=== PATIENT | male | born 1935 | race Caucasian/White ===

== ENCOUNTER 2017-05-09 06:22 | Day surgery (SDC) | payer MEDICARE, BC ==
[2017-05-09] MEDS ORDERED: PROPOFOL 10 MG/ML VIAL IV ONE (06:23)
[2017-05-09] MEDS ORDERED: LIDOCAINE 2% MDV (20MG/ML) 20ML VIAL IV ONE (06:23)
--- NOTE | 2017-05-12 08:01 | Operative Note ---
DATE OF SURGERY: 05/09/2017 SURGEON: Keith Alcazar MD OPERATION: COLONOSCOPY. INDICATIONS: This is an 81-year-old male with history of colon polyps who presented for surveillance colonoscopy. POSTOPERATIVE DIAGNOSES: 1. Left-sided colonic diverticulosis. 2. Four 6-9 mm sessile polyps in the ascending colon that were removed by snare cautery. 3. Two 3 mm sessile polyps in the transverse colon that were removed by cold biopsy forceps. 4. One 6 mm sessile polyp in the descending colon that was removed by cold snare. 5. Normal prostate exam. ANESTHESIA: Sedation is per Anesthesia. Pulse oximetry was monitored throughout the procedure to maintain O2 saturation of 90% or greater. Supplemental oxygen was administered via nasal cannula. Cardiac and vital signs were monitored throughout the duration of the procedure, and they were stable. The procedure of colonoscopy and risks and alternatives of the procedure, including the risk of bleeding and perforation, among others, were explained to the patient who voiced understanding and agreed to have the procedure done. Physical examination was performed, and the patient was found stable for sedation. PROCEDURE: The patient was placed in the left lateral position. Sedation was initiated. A digital rectal exam was performed and showed some mild external hemorrhoids with no palpable rectal masses. An Olympus PCF-180AL colonoscope was then inserted into the rectum under direct visualization. It was advanced to the cecum without difficulty. The ileocecal valve and appendiceal orifice were identified and photographed. The colonic mucosa was carefully examined upon introduction of the colonoscope. There were scattered diverticula noted in the sigmoid and descending colon. In the descending colon was a 6 mm sessile polyp that was noted and was removed by cold snare. In the transverse colon were two 3 mm sessile polyps that were noted and they were removed by cold biopsy forceps. In the ascending colon were four 6-9 mm polyps that were noted and they were removed by snare cautery. The colonoscope was then withdrawn while carefully examining the colonic mucosal surfaces. No other lesions were noted. In the rectum, retroflexion was performed and grade 1 internal hemorrhoids were noted. The colonoscope was then withdrawn and the procedure was terminated. The patient tolerated the procedure well without any immediate complications. He remained with stable vital signs and was transferred to the recovery room. RECOMMENDATIONS: 1. The patient should be on a low-residue diet for 2 weeks and thereafter to be on a high-fiber diet. 2. The patient is to have a repeat colonoscopy only as needed. Thank you for allowing me to participate in the care of your patient. CC: Dr. Josh WRIGHT
== END 2017-05-09 09:00 | disposition home or self-care (01) ==
LOC: HOP 06:22
PROVIDERS: ATTEND Internal Medicine Gastroenterology
DX: Z12.11 Encounter for screening for malignant neoplasm of colon (principal); Z86.010 Personal history of colon polyps; D12.4 Benign neoplasm of descending colon; D12.3 Benign neoplasm of transverse colon; D12.2 Benign neoplasm of ascending colon; K57.30 Diverticulosis of large intestine without perforation or abscess without bleeding; I10 Essential (primary) hypertension; E78.00 Pure hypercholesterolemia, unspecified; K64.0 First degree hemorrhoids

== ENCOUNTER 2017-05-16 09:08 | Emergency (ER) | payer MEDICARE, BC ==
[2017-05-16] MEDS ORDERED: FLUCONAZOLE 100 MG TABLET PO ONE (09:28)
--- NOTE | 2017-05-16 09:28 | Emergency Department Record ---
History of Present Illness - General Chief complaint: Rash Stated complaint: RASH ON GROIN Time Seen by Provider: 05/16/17 09:19 Source: Patient, RN notes reviewed Mode of Arrival: Ambulatory - History of Present Illness Initial comments: rash started friday 5 days ago and itchy and he tried hydrocortisone and not helping. patient had a colonoscopy one week ago MD complaint: Rash Onset/Timin -: Days(s) Location: Genitals, RLE Quality: Other Consistency: Constant, Getting worse Improves with: None Worsens with: None Context: None Associated symptoms: Itching Treatments Prior to Arrival: OTC topical medication - Related Data Previous Rx's Medication Instructions Recorded Metoprolol Succinate [Toprol Xl] 25 mg PO DAILY #30 tab.er.24h 11/08/15 Clotrimazole/Betamethasone Dip 1 applic TP BID #30 cream..g. 05/16/17 [Lotrisone Cream] Allergies Allergy/AdvReac Type Severity Reaction Status Date / Time cephalexin Allergy RASH Verified 05/16/17 09:13 cephalexin monohydrate Allergy RASH Verified 05/16/17 09:13 [From Keflex] terbinafine HCl Allergy RASH Verified 05/16/17 09:13 [From Lamisil] Travel Screening - Travel/Exposure Within Last 30 Days Have you traveled within the last 30 days?: No - Travel/Exposure Within Last Year Have you traveled outside the [place] in the last year?: No - Additonal Travel Details Have you been exposed to anyone with a communicable illness?: No Review of Systems Reviewed: No additional complaints except as noted below Constitutional: Reports: As per HPI. Denies: Chills, Fever, Malaise, Night sweats, Weakness, Weight change Eyes: Reports: As per HPI. Denies: Eye discharge, Eye pain, Photophobia, Vision change ENT: Reports: As per HPI. Denies: Congestion, Dental pain, Ear pain, Epistaxis , Hearing loss, Throat pain Respiratory: Reports: As per HPI. Denies: Cough, Dyspnea, Hemoptysis, Stridor, Wheezes Cardiovascular: Reports: As per HPI. Denies: Arrhythmia, Chest pain, Dyspnea on exertion, Edema, Murmurs, Orthopnea, Palpitations, Paroxysmal nocturnal dyspnea, Rheumatic Fever, Syncope Endocrine: Reports: As per HPI. Denies: Fatigue, Heat or cold intolerance, Polydipsia, Polyuria Gastrointestinal: Reports: As per HPI. Denies: Abdominal pain, Constipation, Diarrhea, Hematemesis, Hematochezia, Melena, Nausea, Vomiting Genitourinary: Reports: As per HPI. Denies: Dysuria, Frequency, Hematuria, Incontinence, Retention, Testicular pain, Testicular mass, Urgency Musculoskeletal: Reports: As per HPI. Denies: Arthralgia, Back pain, Gout, Joint swelling, Myalgia, Neck pain Skin: Reports: As per HPI, Rash. Denies: Bruising, Change in color, Change in hair/nails, Lesions, Pruritus Neurological: Reports: As per HPI. Denies: Abnormal gait, Confusion, Headache, Numbness, Paresthesias, Seizure, Tingling, Tremors, Vertigo, Weakness Psychiatric: Reports: As per HPI. Denies: Anxiety, Auditory hallucinations, Depression, Homicidal thoughts, Suicidal thoughts, Visual hallucinations Hematological/Lymphatic: Reports: As per HPI. Denies: Anemia, Blood Clots, Easy bleeding, Easy bruising, Swollen glands Past Medical History - SOCIAL HISTORY Smoking Status: Never smoker Alcohol Use: None Drug Use: None - RESPIRATORY Hx Respiratory Disorders: No - CARDIOVASCULAR Hx Cardio Disorders: Yes Hx Hypertension: Yes Hx Irregular Heartbeat: Yes Comment:: high cholesterol - NEURO Hx Neuro Disorders: No - GI Hx GI Disorders: Yes Hx Reflux: Yes Hx of Polyps: Yes - Hx Genitourinary Disorders: No - ENDOCRINE Hx Endocrine Disorders: No - MUSCULOSKELETAL Hx Musculoskeletal Disorders: Yes Hx Arthritis: Yes Hx Gout: Yes - PSYCH Hx Psych Problems: No - HEMATOLOGY/ONCOLOGY Hx Hematology/Oncology Disorders: Yes Hx Clotting Problems: Yes (nose bleeds) Family Medical History Any Significant Family History?: Yes Family Hx Comment (NOT TO BE USED IN PLACE OF ITEMS BELOW): Brother- Kidney Failure Hx Heart Disease: Brother/Sister Physical Exam - General General Appearance: Alert, Oriented x3, Cooperative, No acute distress - Head Head exam: Normal inspection - Eye Eye exam: Normal appearance, PERRL Pupils: Normal accommodation - ENT ENT exam: Normal exam, Mucous membranes moist, Normal external ear exam, Normal orophraynx, TM's normal bilaterally Ear exam: Normal external inspection. negative: External canal tenderness Nasal Exam: Normal inspection. negative: Discharge, Sinus tenderness Mouth exam: Normal external inspection, Tongue normal Teeth exam: Normal inspection. negative: Dental caries Throat exam: Normal inspection. negative: Tonsillar erythema, Tonsillar exudate - Neck Neck exam: Normal inspection, Full ROM. negative: Tenderness - Respiratory Respiratory exam: Normal lung sounds bilaterally. negative: Respiratory distress - Cardiovascular Cardiovascular Exam: Regular rate, Normal rhythm, Normal heart sounds - GI/Abdominal GI/Abdominal exam: Soft, Normal bowel sounds. negative: Tenderness - Rectal Rectal exam: Deferred - exam: Deferred - Extremities Extremities exam: Normal inspection, Full ROM, Normal capillary refill. negative: Tenderness - Back Back exam: Reports: Normal inspection, Full ROM. Denies: Muscle spasm, Rash noted, Tenderness - Neurological Neurological exam: Alert, Normal gait, Oriented X3, Reflexes normal - Psychiatric Psychiatric exam: Normal affect, Normal mood - Skin Skin exam: Rash, Other (red area in the groin and penis slightly swollen) Course Vital Signs 05/16/17 09:14 Temperature 97.7 F Pulse Rate 78 Respiratory 18 Rate Blood Pressure 197/89 Pulse Ox 97 Disposition Clinical Impression: Tinea cruris Disposition: Home, Self-Care Condition: (1) Good Instructions: Markos Itch (ED) Additional Instructions: follow up with family in one week Prescriptions: Clotrimazole/Betamethasone Dip [Lotrisone Cream] 1 applic TP BID #30 cream..g. Quality - Quality Measures Quality Measures: N/A - Blood Pressure Screening Does Patient Have Any of the Following: No, Active Dx of HTN Blood Pressure Classification: Pre-Hypertensive BP Reading Systolic Measurement: 197 Diastolic Measurement: 89 Screening for High Blood Pressure: Patient Exclusion, Hx of HTN [[id number]]
== END 2017-05-16 09:43 | disposition home or self-care (01) ==
LOC: ER 09:08
DX: B35.6 Tinea cruris (principal)
CPT/HCPCS: 99282